=== PATIENT | female | born 1935 | race Caucasian/White ===

== ENCOUNTER 2018-08-15 15:07 | Emergency (ER) | payer OTHER ==
[2018-08-15 16:18] LABS: ADD MAN DIFF? NO
[2018-08-15] MEDS: VANCOMYCIN 1 GM (PMX) 250 ML IVPB ×2 (16:30→19:59)
[2018-08-15 16:32] LABS: BASOPHILS % 0.2 % (0.0-2.0); EOSINOPHILS % 0.1 % (0.0-7.0); HEMATOCRIT 37.3 % (37.0-47.0); HEMOGLOBIN 12.6 g/dl (12.0-16.0); LYMPHOCYTES # 0.7 10^3/ul (0.8-2.9); LYMPHOCYTES % 4.9 % (15.0-51.0); MEAN CORPUSCULAR HEMOGLOBIN 30.3 pg (29.0-33.0); MEAN CORPUSCULAR HGB CONC 33.8 g/dl (32.0-37.0); MEAN CORPUSCULAR VOLUME 89.7 fl (82.0-101.0); MEAN PLATELET VOLUME 9.8 fl (7.4-10.4); MONOCYTE # 0.8 10^3/ul (0.3-0.9); MONOCYTES % 5.5 % (0.0-11.0); NEUTROPHIL # 12.8 10^3/ul (1.6-7.5); NEUTROPHILS % 88.5 % (39.0-77.0); PLATELET COUNT 185 10^3/UL (140-415); RED BLOOD COUNT 4.16 10^6/ul (4.20-5.40); RED CELL DISTRIBUTION WIDTH 13.4 % (11.5-14.5)
[2018-08-15 16:32] LABS: WHITE BLOOD COUNT 14.5 10^3/ul (4.8-10.8)
[2018-08-15 16:47] LABS: LACTIC ACID 1.1 mmol/L (0.5-2.0)
[2018-08-15] MEDS: NALOXONE 2 MG SYG IV (16:54)
[2018-08-15] MEDS: SOD CHLORIDE 0.9% 500 ML IV (16:54)
[2018-08-15] MEDS: CEFEPIME 2GM/50 ML (PMX) 50 ML IVPB (16:55)
[2018-08-15] MEDS: ACETAMINOPHEN 325 MG TAB PO (16:55)
[2018-08-15 16:56] LABS: ANION GAP 14 (5-13); BLOOD UREA NITROGEN 11 mg/dl (7-20); CALCIUM 8.9 mg/dl (8.4-10.2); CARBON DIOXIDE 22 mmol/L (21-31); CHLORIDE 97 mmol/L (97-110); CREATININE 0.65 mg/dl (0.44-1.00); GLUCOSE 141 mg/dl (70-220); SODIUM 133 mmol/L (135-144)
[2018-08-15 17:04] LABS: POTASSIUM 2.9 mmol/L (3.5-5.1)
[2018-08-15 17:07] LABS: TROPONIN-I 0.054 ng/ml (0.000-0.120)
[2018-08-15 17:35] LABS: ADD UMIC YES; UR ASCORBIC ACID NEGATIVE (NEGATIVE); UR BACTERIA FEW /HPF (NONE SEEN); UR BILIRUBIN (Dip) NEGATIVE (NEGATIVE); UR BLOOD (Dip) 2+ mg/dL (NEGATIVE); UR CLARITY SLIGHTLY CLOUDY (CLEAR); UR COLOR YELLOW (YELLOW); UR GLUCOSE (Dip) NEGATIVE (NEGATIVE); UR KETONES (Dip) TRACE mg/dL (NEGATIVE); UR LEUKOCYTE ESTERASE (Dip) NEGATIVE Leu/ul (NEGATIVE); UR NITRITE (Dip) NEGATIVE (NEGATIVE); UR RBC 37 /HPF (0-5); UR SPECIFIC GRAVITY (Dip) 1.015 (1.003-1.030); UR TOTAL PROTEIN (Dip) 1+ mg/dl (NEGATIVE); UR UROBILINOGEN (Dip) 1+ mg/dL (NEGATIVE); UR WBC 3 /HPF (0-5)
[2018-08-15] MEDS: POTASSIUM CHLORIDE 100 ML IVPB (19:00)
[2018-08-15] MEDS: POTASSIUM CHLORIDE (SR) 20 MEQ TAB PO (20:29)
== END 2018-08-15 22:06 | disposition short-term general hospital (02) ==
LOC: E/R 22:06
DX: B34.9 Viral infection, unspecified (principal); R53.1 Weakness
CPT/HCPCS: 70450; 71045; 80048; 81001; 82962; 83605; 84484; 85025; 87040; 87086; 87400; 93005; 96374; 96375; 99285-25